=== PATIENT | male | born 1965 | race Caucasian/White ===

== ENCOUNTER 2016-08-22 06:05 | Emergency (ER) | payer BC, OTHER ==
[2016-08-22 06:08] VITALS: BP 132/88
--- NOTE | 2016-08-22 06:39 | EDM.PDOC ---
ED HPI Trauma - General Chief Complaint: Lower Extremity Injury/Pain Stated Complaint: Foot Pain Time Seen by Provider: 08/22/16 06:24 Source: Reports: Patient History Limitations: Reports: No limitations - History of Present Illness INITIAL COMMENTS - FREE TEXT/NARRATIVE: Patient reports pain in his feet for the last 3 weeks. He stubbed his right big toe and ever since both balls of his feet hurt. He describes the pain as a dull ache. He denies any other symptoms. He is a 1 PPD smoker, rare drinker. No primary care provider. Symptom Onset Date: 07/25/16 Severity: mild Pain/Injury Location: Reports: lower extremity, right, lower extremity, left Associated Symptoms: Reports: no other symptoms Allergies/ADRs: Allergies No Known Allergies Allergy (Verified 08/22/16 06:06) Home Medications: Ambulatory Orders . [No Known Home Meds] 06/17/13 [Confirmed 08/22/16] Past Medical History - Past Health History Medical/Surgical History: Denies Medical/Surgical History Respiratory History: Reports: Other (see below) Other Respiratory History: Pneumonia in 1993 Musculoskeletal History: Reports: Back pain, chronic Social & Family History - Tobacco Use Smoking Status *Q: Current Every Day Smoker Years of Tobacco use: 30 Packs/Tins Daily: 1 - Caffeine Use Caffeine Use: Reports: Coffee - Alcohol Use Days Per Week of Alcohol Use: 2 Number of Drinks Per Day: 6 Total Drinks Per Week: 12 - Recreational Drug Use Recreational Drug Use: No Review of Systems - Review of Systems Review Of Systems: See Below Constitutional: Reports: no symptoms Eyes: Reports: no symptoms Ears: Reports: no symptoms Nose: Reports: no symptoms Mouth/Throat: Reports: no symptoms Respiratory: Reports: No Symptoms Cardiovascular: Reports: no symptoms GI/Abdominal: Reports: No symptoms Genitourinary: Reports: no symptoms Musculoskeletal: Reports: no symptoms Skin: Reports: rash Neurological: Reports: No Symptoms Psychiatric: Reports: no symptoms Trauma Exam - Physical Exam Exam: See Below Exam Limited By: No limitations General Appearance: Reports: alert Head: Reports: atraumatic, normocephalic Eyes: bilateral eye: EOMI, PERRL Ears: Reports: normal TMs Nose: Reports: normal inspection Throat/Mouth: Reports: Normal inspection, Normal lips, Normal teeth, Normal gums , Normal oropharynx, Normal voice, No airway compromise Neck: Reports: non-tender, full range of motion, normal alignment, normal inspection Respiratory Exam: Reports: no respiratory distress, lungs clear, normal breath sounds, no accessory muscle use, chest non-tender Cardiovascular: Reports: normal peripheral pulses, regular rate, rhythm, no edema, no gallop GI/Abdominal: Reports: normal bowel sounds, soft, non tender, no organomegaly Back: Reports: full range of motion Extremities: Reports: no evidence of injury, normal range of motion, non-tender , no pedal edema Neurologic: Reports: edi developer II-XII nml as tested, no motor/sensory deficits, alert , normal mood/affect, oriented x 3 Skin: Reports: Rash (toenails have hypertrophic growth, bilateral soles of feet are reddened, with overgrowth of tissue and thickening of the balls of the feet) Course - Vital Signs Last Recorded V/S: Last Vital Signs Temp 36.7 C 08/22/16 06:07 Pulse 94 08/22/16 06:07 Resp 16 08/22/16 06:07 BP 132/88 08/22/16 06:07 Pulse Ox 96 08/22/16 06:07 - Orders/Labs/Meds Orders: Active Orders 24 hr Category Date Time Status Accu Check [Blood Glucose Check, Bedside] [RC] ONETIME Care 08/22/16 06:33 Ordered Departure - Departure Time of Disposition: 06:56 Disposition: Home, Self-Care 01 Condition: good Clinical Impression: Tinea pedis of both feet Instructions: Athlete's Foot, [id number] Forms: ED Department Discharge Additional Instructions: I believe that you have a bad case of athlete's foot. I gave you a prescriptions for Fluconazole which is an anti fungus medication. Take this one time per week for 6 weeks. I would also recommend washing your shoes. You should see a primary doctor for future regular complaints of pain to your feet. You may also use an antifungal cream or spray like Lotrimin to put on your feet. Please call us with any questions or concerns. - Problem List & Annotations (1) Tinea pedis of both feet SNOMED Code(s): 7345338 Code(s): B35.3 - TINEA PEDIS Status: Acute Priority: Low Current Visit : Yes - Problem List Review Problem List Initiated/Reviewed/Updated: Yes - My Orders Last 24 Hours: My Active Orders 08/22/16 06:33 Accu Check [Blood Glucose Check, Bedside] [RC] ONETIME - Assessment/Plan Last 24 Hours: My Active Orders 08/22/16 06:33 Accu Check [Blood Glucose Check, Bedside] [RC] ONETIME Assessment:: athlete's foot/tinea pedis Plan: I believe that you have a bad case of athlete's foot. I gave you a prescriptions for Fluconazole which is an anti fungus medication. Take this one time per week for 6 weeks. I would also recommend washing your shoes. You should see a primary doctor for future regular complaints of pain to your feet. You may also use an antifungal cream or spray like Lotrimin to put on your feet. Please call us with any questions or concerns.
[2016-08-22] MEDS ORDERED: Fluconazole 100 MG Tab PO ONE (06:44)
[2016-08-22] MEDS ORDERED: Fluconazole 100 MG Tab PO SCH (08:00)
== END 2016-08-22 07:01 | disposition home or self-care (01) ==
LOC: VM.ED 06:05
DX: B35.3 Tinea pedis (principal); F17.210 Nicotine dependence, cigarettes, uncomplicated
CPT/HCPCS: 82962; 99282; A9270

== ENCOUNTER 2019-05-12 15:32 | Emergency (ER) | payer MEDICAID ==
[2019-05-12] MEDS: Ondansetron 4 MG/2 ML SDV IVPUSH ONE (16:12)
[2019-05-12] MEDS: Sodium Chloride 0.9% 1,000 ML IV ONE (16:15)
[2019-05-12 16:27] LABS: ANION GAP 15.9 mmol/L (10-20); CHLORIDE,CL 108 mmol/L (98-107); SODIUM,NA 145 mmol/L (136-145)
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
[2019-05-12 18:29] VITALS: BP 125/70; PULSE 94
== END 2019-05-12 18:00 | disposition home or self-care (01) ==
LOC: VM.ED 15:32
DX: K52.9 Noninfective gastroenteritis and colitis, unspecified (principal); J44.9 Chronic obstructive pulmonary disease, unspecified; E11.9 Type 2 diabetes mellitus without complications; F32.9 Major depressive disorder, single episode, unspecified; Z79.84 Long term (current) use of oral hypoglycemic drugs; Z79.82 Long term (current) use of aspirin; Z79.899 Other long term (current) drug therapy
CPT/HCPCS: 36415; 80053; 85025; 96361; 96374; 99284-25; J2405; J7030

== ENCOUNTER 2020-01-28 18:17 | Emergency (ER) | payer MEDICAID | END 2020-01-28 18:30 | disposition left against medical advice (07) | LOC: VM.ED 18:17 | DX: Z53.21 Procedure and treatment not carried out due to patient leaving prior to being seen by health care provider (principal) ==

== ENCOUNTER 2022-04-11 18:23 | Emergency (ER) | payer MEDICAID ==
[2022-04-11 19:05] VITALS: BP 152/87; PULSE 72
== END 2022-04-11 19:11 | disposition other institution (70) ==
LOC: VM.ED 18:23
DX: S62.306A Unspecified fracture of fifth metacarpal bone, right hand, initial encounter for closed fracture (principal); E78.00 Pure hypercholesterolemia, unspecified; J44.9 Chronic obstructive pulmonary disease, unspecified; E11.9 Type 2 diabetes mellitus without complications; Z72.0 Tobacco use; Z79.84 Long term (current) use of oral hypoglycemic drugs; Z79.82 Long term (current) use of aspirin; Z79.899 Other long term (current) drug therapy
CPT/HCPCS: 99283

== ENCOUNTER 2023-07-04 22:39 | Emergency (ER) | payer MEDICAID ==
[2023-07-04 23:00] LABS: BASOPHILS ABSOLUTE AUTO 0.1 x10^3/uL (0.0-0.2); BASOPHILS PERCENT AUTO 0.7 % (0.2-1.2); EOSINOPHILS ABSOLUTE AUTO 0.2 x10^3/uL (0.0-0.5); EOSINOPHILS PERCENT AUTO 2.8 % (0.0-4.0); HEMATOCRIT 44.9 % (40.0-52.0); HEMOGLOBIN 15.6 g/dL (14.0-18.0); IMMATURE GRAN ABSOLUTE AUTO 0.01 x10^3/uL (0.00-0.07); LYMPHOCYTES ABSOLUTE AUTO 2.4 x10^3/uL (1.0-4.8); LYMPHOCYTES PERCENT AUTO 29.1 % (25.0-50.0); MEAN CORPUSCULAR HEMOGLOBIN 32.7 pg (26.0-32.0); MEAN CORPUSCULAR HGB CONC 34.7 g/dL (32.0-36.0); MEAN CORPUSCULAR VOLUME 94.1 fL (78.0-93.0); MONOCYTES ABSOLUTE AUTO 0.3 x10^3/uL (0.0-0.8); MONOCYTES PERCENT AUTO 3.9 % (2.0-11.0); NEUTROPHILS ABSOLUTE AUTO 5.2 x10^3/uL (1.8-7.7); NEUTROPHILS PERCENT AUTO 63.4 % (50.0-80.0); PLATELET COUNT,PLT 229 x10^3/uL (130-400); RED BLOOD CELL COUNT 4.77 x10^6/uL (4.5-6.0); WHITE BLOOD CELL COUNT,WBC 8.2 x10^3/uL (4.0-10.0)
[2023-07-04 23:05] VITALS: BP 159/101; PULSE 82
[2023-07-04 23:20] LABS: A/G RATIO 1.23; ALANINE AMINOTRANSFERASE,ALT 21 U/L (16-63); ALBUMIN 3.7 g/dL (3.4-5.0); ALKALINE PHOSPHATASE 73 U/L (46-116); ANION GAP 15.8 mmol/L (5-15); ASPARTATE AMNIOTRANSFERASE,AST 13 U/L (15-37); BILIRUBIN TOTAL 0.3 mg/dL (0.2-1.0); BLOOD UREA NITROGEN,BUN 18 mg/dL (7-18); C-REACTIVE PROTEIN < 0.50 mg/dL (<=0.50); CALCIUM 8.6 mg/dL (8.5-10.1); CARBON DIOXIDE,CO2 27 mmol/L (21-32); CHLORIDE,CL 106 mmol/L (98-107); CREATININE 0.8 mg/dL (0.70-1.30); EST CRCL DRUG DOSING (CG) 119.88 mL/min; ESTIMATED GFR 104 mL/min (>=60); GLUCOSE RANDOM 136 mg/dL (70-99); POTASSIUM,K 3.8 mmol/L (3.5-5.1); PROTEIN TOTAL,TP 6.7 g/dL (6.4-8.2); SODIUM,NA 145 mmol/L (136-145)
== END 2023-07-05 00:01 ==
LOC: VM.ED 22:39
DX: R07.89 Other chest pain (principal); F32.A Depression, unspecified; J44.9 Chronic obstructive pulmonary disease, unspecified; E78.00 Pure hypercholesterolemia, unspecified; E11.9 Type 2 diabetes mellitus without complications; F17.200 Nicotine dependence, unspecified, uncomplicated; Z79.84 Long term (current) use of oral hypoglycemic drugs; Z79.82 Long term (current) use of aspirin; Z79.899 Other long term (current) drug therapy
CPT/HCPCS: 36415; 71045; 80053; 84484; 85025; 86140; 93005; 93010; 99284; 99285